=== PATIENT | male | born 1950 | race African-American/Black ===

== ENCOUNTER 2017-11-02 22:29 | Emergency (ER) | payer OTHER, BC ==
[~2017-11-02] VITALS: Ht 175.3 cm; Wt 89.7 kg
[2017-11-03 00:03] LABS: HEMATOCRIT 43.3 % (38.0-50.0); HEMOGLOBIN 14.5 G/DL (12.5-16.6); MCH 29.5 PG (29.0-34.0); MCHC 33.5 G/DL (30.0-36.0); RBC DIS.WIDTH-CV 12.7 % (11.8-14.6); RBC DIS.WIDTH-SD 41.1 % (39-53); RED BLOOD COUNT 4.92 M/uL (4.00-5.50); WHITE BLOOD COUNT 8.2 K/uL (4.1-10.2)
[2017-11-03 00:23] LABS: CHLORIDE 106 MEQ/L (99-109); POTASSIUM 4.9 MEQ/L (3.7-5.4); SODIUM 137 MEQ/L (136-147); TOTAL BILIRUBIN 0.3 MG/DL (0.0-1.0)
[2017-11-03 00:24] LABS: TROP-I INTERPRETATION NEGATIVE; TROPONIN-I < 0.01 ng/mL (0.0-0.30)
[2017-11-03 00:29] LABS: ALKALINE PHOSPHATASE 42 IU/L (3-129); ALT (GPT) 16 IU/L (3-49); AST (GOT) 17 IU/L (2-34); CREATININE 1.4 MG/DL (0.6-1.3); GFR ESTIMATE (CALCULATED) 53 mL/min/ (58.99-99999); GLUCOSE 187 mg/dL (70-99); LIPASE 42 U/L (1.0-51.0); TOTAL PROTEIN 6.6 G/DL (6.4-8.3); UREA NITROGEN (BUN) 18 mg/dL (9-23)
[2017-11-03 01:27] LABS: PLAT.SUFFICIENCY ADEQUATE; PLATELET COUNT 164 K/uL (156-360)
[2017-11-03] MEDS ORDERED: NORVASC5 MG PO (03:59)
[2017-11-03 04:52] VITALS: BP 148/85
== END 2017-11-03 04:53 | disposition home or self-care (01) ==
LOC: EME 22:29
PROVIDERS: Emergency Medicine
DX: I10 Essential (primary) hypertension (principal); R51 Headache; R42 Dizziness and giddiness; R06.02 Shortness of breath
CPT/HCPCS: 80053; 83690; 84484; 85027; 93005; 99281; 99284